=== PATIENT | female | born 1985 | race Caucasian/White ===

== ENCOUNTER 2018-11-15 23:35 | Emergency (ER) | payer BC ==
[~2018-11-15] VITALS: Ht 157.5 cm; Wt 55.8 kg
--- NOTE | 2018-11-15 23:35 | NUR ---
Patient to ER bed 8 to gown for evaluation. Side rails up. Report given from PIETRO Diaz.
[2018-11-15 23:38] VITALS: BP_SYST 148
--- NOTE | 2018-11-15 23:40 | NUR ---
KHOI Cuba at bedside examining patient.
--- NOTE | 2018-11-15 23:45 | NUR ---
Pt came into the ED with SO for an intermmitent BALDERAS for the past 2 weeks post fall and a gradual onset of L sided numbness. Pt reported to have been drinking and fell hitting her head. Pt appears to have a bruise below R eye. Unable to recall if KO due to being drunk. Pt has taken tylenol and naproxen with some relief. Denies n/v/d or fever. No slurred speech, drooling, chest pain, SOB. Pt able to walk with steady gait. No other complaints/injuries noted. Will cont. to monitor.
--- NOTE | 2018-11-16 | NUR ---
Pt went to radiology for CT, stable condition. No signs of distress.
--- NOTE | 2018-11-16 00:02 | NUR ---
Accompanied pt to CT, asked pt about bruise below R eye and if she feels like she is in danger. Pt states, "the bruise is from when I fell, it's still a little swollen. I also have a litzy below my eye." KHOI JOHNSTON made aware.
--- NOTE | 2018-11-16 00:07 | NUR ---
Pt returned from CT scan via gurney, no signs of distress. pt is stable
--- NOTE | 2018-11-16 00:15 | NUR ---
Dr. Mueller at bedside discussing results with pt.
[2018-11-16 00:23] VITALS: BP_SYST 148
--- NOTE | 2018-11-16 00:23 | NUR ---
Note undone in EDM - 11/16/18 at 0025 by SDEDAJ Patient given written and verbal discharge instructions and verbalizes understanding. ER MD Dr. Mueller discussed with patient the results and treatment provided. Patient in stable condition. ID arm band removed. Rx of ibuprofen given. Patient educated on pain management and to follow up with PMD within 2-3 days. Pain Scale 0/10. Opportunity for questions provided and answered. Medication side effect fact sheet provided.
== END 2018-11-16 00:23 | disposition home or self-care (01) ==
LOC: SED 23:35
DX: S09.90XA Unspecified injury of head, initial encounter (principal); F07.81 Postconcussional syndrome; F41.9 Anxiety disorder, unspecified; R03.0 Elevated blood-pressure reading, without diagnosis of hypertension; W18.09XA Striking against other object with subsequent fall, initial encounter; Y93.89 Activity, other specified; Y92.89 Other specified places as the place of occurrence of the external cause; Y99.8 Other external cause status
CPT/HCPCS: 70450-TC; 81025; 99284